=== PATIENT | male | born 1940 | race Caucasian/White ===

== ENCOUNTER 2017-07-18 22:12 | Inpatient (IN) | payer OTHER ==
[~2017-07-18] VITALS: Ht 180.3 cm; Wt 103.0 kg
[~2017-07-18 22:12] MED LIST: DECADRON4 M1 PO; GLUCOPHAGE500 MG PO; HUMALOG100 UNIT/2 SC; JANUVIA100 MG PO; KEPPRA250 MG PO; LANTUS 3 M100 UNITS1 SC; TYLENOL REGULA325 MG PO; VITAMIN D32000 UNI1 PO; ZESTRIL2.5 MG PO
[2017-07-19] MEDS ORDERED: VITAMIN D2000 UNI1 PO (06:38)
[2017-07-19 06:45] VITALS: BP 163/88
[2017-07-19 19:00] VITALS: BP 137/77
[2017-07-19 20:00] VITALS: BP 142/72
[2017-07-19 21:00] VITALS: BP 127/93
[2017-07-19 22:00] VITALS: BP 141/77
[2017-07-19 23:00] VITALS: BP 132/72
[2017-07-20] VITALS (20 sets, daily range): BP systolic 125–156; BP diastolic 65–88
[2017-07-21 03:20] VITALS: BP 150/72
[2017-07-21 08:17] VITALS: BP 133/76
[2017-07-21 11:43] VITALS: BP 132/72
[2017-07-21] MEDS ORDERED: DECADRON4 M1 PO (12:19)
== END 2017-07-21 13:40 | disposition home or self-care (01) | DRG 41 ==
LOC: ENRESERV 22:12 → 4WEST 07-19 05:43 → 2SOUTH 07-19 05:43 → 4WEST 07-19 10:46 → ENRESERV 07-19 12:21 → 4WEST 07-19 12:57 → ENRESERV 07-20 16:20 → 3EAST 07-20 17:34
PROVIDERS: Neurological Surgery
PROC: D020DZZ Stereotactic Other Photon Radiosurgery of Brain (ICD-10-PCS; principal; 2017-07-19)
DX: C79.31 Secondary malignant neoplasm of brain (principal); C71.1 Malignant neoplasm of frontal lobe; E11.65 Type 2 diabetes mellitus with hyperglycemia; I48.2 Chronic atrial fibrillation; I10 Essential (primary) hypertension; I25.10 Atherosclerotic heart disease of native coronary artery without angina pectoris; G93.9 Disorder of brain, unspecified; R56.9 Unspecified convulsions; Z79.01 Long term (current) use of anticoagulants; Z87.891 Personal history of nicotine dependence; Z85.820 Personal history of malignant melanoma of skin; Z79.4 Long term (current) use of insulin
CPT/HCPCS: 70450; 77021; 80177 90; 80306 90; 82948; 87641; 88307; 88341 TC; 88342 TC; C1713; J0131; J0330; J0360; J0461; J0690; J1100; J1815; J2405; J2710; J3480; J7643